=== PATIENT | female | born 1960 | race Caucasian/White ===

== ENCOUNTER 2018-07-18 08:20 | Day surgery (SDC) | payer BC ==
[~2018-07-18 08:20] MED LIST: LIDOCAINE HCL 1% MPF 30 SOL ONE; PROPOFOL 500 MG/50 ML EMU IV ONE
[2018-07-18 11:05] VITALS: BP 134/81; PULSE 63; RESP 20; TEMP 97.3; O2SAT 99
== END 2018-07-18 11:42 | disposition home or self-care (01) ==
LOC: SURG 08:20
PROVIDERS: ATTEND Internal Medicine Gastroenterology
DX: Z12.11 Encounter for screening for malignant neoplasm of colon (principal); Z86.010 Personal history of colon polyps; Z80.0 Family history of malignant neoplasm of digestive organs; K57.32 Diverticulitis of large intestine without perforation or abscess without bleeding; D12.2 Benign neoplasm of ascending colon; D12.0 Benign neoplasm of cecum; K63.5 Polyp of colon; K62.1 Rectal polyp; K64.8 Other hemorrhoids
CPT/HCPCS: 99001; J2001; J2704